=== PATIENT | female | born 1995 | race Two or more races ===

== ENCOUNTER 2020-09-30 14:35 | Emergency (ER) | payer MEDICAID, OTHER ==
[~2020-09-30] VITALS: Ht 162.6 cm; Wt 77.1 kg
[2020-09-30 16:28] VITALS: BP 134/84
== END 2020-09-30 17:18 | disposition home or self-care (01) ==
LOC: ER 14:39
DX: Z76.0 Encounter for issue of repeat prescription (principal); J45.909 Unspecified asthma, uncomplicated